=== PATIENT | female | born 1975 | race Hispanic/Latino ===

== ENCOUNTER 2022-07-27 18:38 | Emergency (ER) | payer OTHER ==
--- OUTSIDE RECORDS SUMMARY | 2022-07-27 18:40 | XMS REPORT | Continuity of Care Document ---
:1975 Author Organization [facility] t Address [address] [place] [address] Care Team Providers Name Role Phone PCP, PATIENT DOES NOT HAVE A Primary Care Physician Miguel Fontanez MD Attending Clinician MIGUEL MCGRATH Attending Clinician Unavailable Doctor Unassigned, [place] Attending Clinician Unavailable Payers Payer Name Policy Type Policy Number Effective Date Expiration Date S ource Problems Condition Condition Condition Status Onset Resolution Last Treating Co mments Source Name Details Category Date Date Treatment Clinician Date No known No known Disease Unive rs active active ity of problems problems [facility] Allergies, Adverse Reactions, Alerts Allergy Allergy Status Severity Reaction(s) Onset Inactive Treating Comm ents Source Name Type Date Date Clinician CODEINE DRUG Active Hallucinates 2021-07 Uni vers INGREDI 2-30 ity of 00:00: [place] [address] [place] [address] Codeine Propensi Active Hallucinatio 2021-07 U nivers ty to ns 2-30 ity of adverse 00:00: [place] reaction [address] [place] [address] s [place] NO KNOWN Drug Active Univers ALLERGIE Class ity of S [facility] Social History Social Habit Start Date Stop Date Quantity Comments Source Exposure to 2022-07-12 2022-07-22 Not sure [facility] SARS-CoV-2 00:00:00 15:00:00 [facility] (event) [place] Tobacco use and 2022-07-22 2022-07-22 Smokeless tobacco Un iversity of exposure 00:00:00 00:00:00 non-user [facility] Alcohol intake 2022-07-22 2022-07-22 Lifetime University of 00:00:00 00:00:00 non-drinker [facility] (finding) [place] Sex Ass[birth year] Universit y of 00:00:00 00:00:00 [facility] Smoking Status Start Date Stop Date Source Tobacco smoking consumption Univ [facility] Never smoked tobacco [facility] Medications Ordered Filled Start Stop Current Ordering Indication Dosage Frequency Signature Comments Components Source Medication Medication Date Date Medication? Clinician (SIG) Name Name No known 2021-07 No No known Unive rs medications 2-30 medication it y of 15:26: s [address] No known 2021-07 No No known Unive rs medications 2-30 medication it y of 15:26: s [address] Vital Signs Vital Name Observation Time Observation Value Comments Source Systolic blood 2022-07-22 21:25:00 123 mm[Hg] Univer sity of pressure [facility] Diastolic blood 2022-07-22 21:25:00 84 mm[Hg] Unive rsity of [facility] Heart rate 2022-07-22 21:23:00 65 /min [facility] Body temperature 2022-07-22 21:23:00 36.5 [facility] Respiratory rate 2022-07-22 21:23:00 18 /min [facility] Body height 2022-07-22 21:23:00 180.3 cm [facility] Body weight 2022-07-22 21:23:00 107.502 kg [facility] BMI 2022-07-22 21:23:00 33.05 kg/m2 [facility] Procedures Procedure Date / Time Performed Performing Clinician [facility] e ASSIGNMENT OF BENEFITS 2022-07-22 21:01:12 Doctor Unassigned, No [facility] Encounters Start End Encounter Admission Attending Care Care Encounter Source Date/Time Date/Time Type Type Clinicians Facility Department ID 2022-07-22 2022-07-22 [facility] [id number] Univers 15:00:00 16:02:17 Visit Miguel GUERIN [id number] Francine [id number] Ana MIGUEL [id number] [place] [address] [address] [employer] 2022-07-22 2022-07-22 Outpatient R ALCIDES [facility] [id number] Univers 15:00:00 16:02:17 MIGUEL ity of [facility] 2022-07-22 2022-07-22 Orders Doctor FRANKIE [id number] Univers 00:00:00 00:00:00 Only Unassigned, BRODY [id number] ity of [place] [facility] [id number] [facility] as [phone] [place] [address] [address] Results This patient has no known results.
[2022-07-27 19:21] LABS: Urine Blood 3+ (Negative); Urine Glucose Negative (Negative); Urine Protein 1+ (Negative); Urine Specific Gravity 1.015 (1.005-1.030)
[2022-07-27 19:30] LABS: Absolute Lymphocytes (CBC) 2.6 K/uL (0.7-4.9); Hematocrit 36.2 % (36.0-45.0); Lymphocytes % 26.8 % (15.3-44.8); MCV 88.9 fL (80-100); MPV 9.3 fL (7.6-11.3); RBC Red Blood Cell Count 4.08 M/uL (3.86-4.86)
[2022-07-27 19:56] LABS: Potassium 3.3 mmol/L (3.5-5.1)
--- NOTE | 2022-07-27 20:50 | RAD REPORT ---
EXAM DESCRIPTION: US - Transvaginal Study Probe - 07/27/2022 8:30 pm CLINICAL HISTORY: Vaginal bleeding COMPARISON: none FINDINGS: The uterus measures 9 x 5 x 6 cm. A fibroid is not seen. The endometrial stripe measures 2 centimeters. Nabothian cysts within the cervix Right ovary normal in size and echotexture. A 4.3 centimeter left ovarian cyst. Blood flow is present the left ovary. The right and left adnexa unremarkable No significant free fluid is seen. IMPRESSION: Thickened endometrium. This can be seen with hyperplasia, neoplasm or polyp. 4.3 centimeter left ovarian cyst Followup ultrasound in a couple months would be helpful to reassess the endometrium and ovarian cyst
--- NOTE | 2022-07-27 21:23 | ER ---
Nurse's Notes [facility] Name: Tamy Moreno Age: 46 yrs Sex: Female : 1975 Arrival Date: 07/27/2022 Time: 18:38 Bed 9 Private MD: Diagnosis: Abnormal uterine and vaginal bleeding, unspecified Presentation: 07/27 18:44 Chief complaint: Patient states: vaginal bleeding that began Monday, pt described aa5 bleeding as "heavy". 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 Coronavirus screen: At this time, the client does not indicate any symptoms associated with coronavirus-19. Ebola Screen: Patient denies travel to an Ebola-affected area in the 21 days before illness onset. Initial Sepsis Screen: Does the patient meet any 2 criteria? No. Patient's initial sepsis screen is negative. Does the patient have a suspected source of infection? No. Patient's initial sepsis screen is negative. Risk Assessment: Do you want to hurt yourself or someone else? Patient reports no desire to harm self or others. Onset of symptoms was July 2022. 18:44 Method Of Arrival: Wheelchair aa5 18:44 Acuity: MARYANNE 3 aa5 Historical: - Allergies: 18:46 Codeine; aa5 - Home Meds: 18:46 None [Active]; aa5 - PMHx: 18:46 None; aa5 - PSHx: 18:46 hernia; aa5 - Immunization history:: Adult Immunizations unknown. - Social history:: Smoking status: Patient denies any tobacco usage or history of. Screenin:33 [facility] ED Fall Risk Assessment (Adult) History of falling in the last 3 months, kd3 including since admission No falls in past 3 months (0 pts) Confusion or Disorientation No (0 pts) Intoxicated or Sedated No (0 pts) Impaired Gait No (0 pts) Mobility Assist Device Used No (0 pt) Altered Elimination No (0 pt) Score/Fall Risk Level 0 - 2 = Low Risk Oriented to surroundings. Abuse screen: Denies threats or abuse. Denies injuries from another. Nutritional screening: No deficits noted. Tuberculosis screening: No symptoms or risk factors identified. Assessment: 20:33 General: Appears in no apparent distress. Behavior is calm, cooperative. Pain: kd3 Complains of pain in abdomen. Neuro: Level of Consciousness is awake, alert, obeys commands, Oriented to person, place, time, situation. Cardiovascular: Patient's skin is warm and dry. Respiratory: Airway is patent Trachea midline Respiratory effort is even, unlabored, Respiratory pattern is regular, symmetrical. : bloody, Reports vaginal bleeding that is bright red. Vital Signs: 18:44 BP 139 / 80; Pulse 82; Resp 18 S; Temp 98.2(TE); Pulse Ox 99% on R/A; Weight 104.33 kg aa5 (R); Height 5 ft. 11 in. (180.34 cm) (R); 21:00 BP 133 / 82; Pulse 83; Resp 18; Pulse Ox 100% on R/A; Pain 1/10; oe 18:44 Body Mass Index 32.08 (104.33 kg, 180.34 cm) aa5 ED Course: 18:38 Patient arrived in ED. mr 18:42 Arm band placed on. aa5 18:46 Triage completed. aa5 18:56 Filomena Gillespie FNP-C is [facility]. kb 18:56 Xena Philip MD is Attending Physician. kb 19:24 Lorena Gallo, FERMÍN is Primary Nurse. kd3 20:31 US Transvaginal Study (Probe) In Process Unspecified. EDMS 20:34 Patient has correct armband on for positive identification. Placed in gown. kd3 21:35 No provider procedures requiring assistance completed. IV discontinued, intact, kd3 bleeding controlled, No redness/swelling at site. Pressure dressing applied. Administered Medications: 21:34 Drug: Potassium Chloride 20 mEq Route: PO; kd3 21:35 Follow up: Response: No adverse reaction kd3 Medication: 20:34 VIS not applicable for this client. kd3 Outcome: 21:22 Discharge ordered by . kb 21:35 Discharged to home ambulatory. kd3 21:35 Condition: stable 21:35 Discharge instructions given to patient, Instructed on discharge instructions, follow up and referral plans. Demonstrated understanding of instructions, follow-up care. 21:36 Patient left the ED. kd3 Signatures: Dispatcher [employer] EDMS Filomena Gillespie FNP-C FNP-Chava Huyen LambertJennifer RN RN aa5 Isael Don oe oLrena Gallo, RN RN kd3
--- NOTE | 2022-07-27 21:23 | EDPHYS ---
Physician Documentation [facility] Name: Tamy Moreno Age: 46 yrs Sex: Female : 1975 Arrival Date: 07/27/2022 Time: 18:38 Bed 9 Private MD: ED Physician Xena Philip HPI: 07/27 23:55 This 46 yrs old Female presents to ER via Wheelchair with complaints of kb Vaginal Bleeding, Weakness. 23:55 The patient presents with vaginal bleeding that is. Onset: The symptoms/episode kb began/occurred 4 day(s) ago. Modifying factors: The symptoms are alleviated by nothing, the symptoms are aggravated by nothing. The patient has been recently seen by a physician: the patient's primary care provider. 23:56 Associated signs and symptoms: Pertinent positives: vaginal bleeding. Severity of kb symptoms: At their worst the symptoms were moderate, in the emergency department the symptoms are unchanged. The patient has not experienced similar symptoms in the past. Pt reports she was seen by COMMERCIAL LOAN PROCESSOR on Monday for the first time in 5-6 years. Had pelvic exam and PAP smear done. Started having heavy vaginal bleeding on Monday. States the bleeding started slowing down, but today she felt like she was going to pass out. Historical: - Allergies: 18:46 Codeine; aa5 - Home Meds: 18:46 None [Active]; aa5 - PMHx: 18:46 None; aa5 - PSHx: 18:46 hernia; aa5 - Immunization history:: Adult Immunizations unknown. - Social history:: Smoking status: Patient denies any tobacco usage or history of. ROS: 23:54 Positive for vaginal bleeding. kb 23:54 Constitutional: Negative for fever, chills, and weight loss. 23:54 Neuro: Positive for near syncope. 23:54 All other systems are negative. Exam: 23:54 Constitutional: This is a well developed, well nourished patient who is awake, alert, kb and in no acute distress. Head/Face: Normocephalic, atraumatic. ENT: Moist Mucous membranes Cardiovascular: Regular rate and rhythm with a normal S1 and S2. No gallops, murmurs, or rubs. No pulse deficits. Respiratory: Respirations even and unlabored. No increased work of breathing. Talking in full sentences Abdomen/GI: Soft, non-tender. No distention Skin: Warm, dry with normal turgor. Normal color. MS/ Extremity: Pulses equal, no cyanosis. Neurovascular intact. Full, normal range of motion. Neuro: Awake and alert, GCS 15, oriented to person, place, time, and situation. Moves all extremities. Normal gait. Vital Signs: 18:44 BP 139 / 80; Pulse 82; Resp 18 S; Temp 98.2(TE); Pulse Ox 99% on R/A; Weight 104.33 kg aa5 (R); Height 5 ft. 11 in. (180.34 cm) (R); 21:00 BP 133 / 82; Pulse 83; Resp 18; Pulse Ox 100% on R/A; Pain 1/10; oe 18:44 Body Mass Index 32.08 (104.33 kg, 180.34 cm) aa5 MDM: 18:56 Patient medically screened. kb 23:53 Differential diagnosis: dysmenorrhea, menometrorrhagia, uterine fibroids. Data kb reviewed: vital signs, nurses notes. Data interpreted: Pulse oximetry: on room air is 100 %. Interpretation: normal. Counseling: I had a detailed discussion with the patient and/or guardian regarding: the historical points, exam findings, and any diagnostic results supporting the discharge/admit diagnosis, lab results, radiology results, the need for outpatient follow up, an OB/Gyne specialist, to return to the emergency department if symptoms worsen or persist or if there are any questions or concerns that arise at home. ED course: Pt has follow up appt with PCP and has a referral to COMMERCIAL LOAN PROCESSOR from PCP already. Educated on need to follow up with COMMERCIAL LOAN PROCESSOR for further workup and possible endometrial biopsy. Verbal understanding of all instructions recieved. 07/27 18:48 Order name: Abo/rh Typing; Complete Time: 20:31 aa5 07/27 18:48 Order name: Basic Metabolic Panel; Complete Time: 20:31 aa5 07/27 18:48 Order name: CBC with Diff; Complete Time: 19:43 aa5 07/27 19:10 Order name: TSH; Complete Time: 20:31 kb 07/27 19:21 Order name: Urine Dipstick-Ancillary; Complete Time: 19:23 EDMS 07/27 20:45 Order name: ABO/RH no charge; Complete Time: 21:11 EDMS 07/27 18:48 Order name: IV Saline Lock; Complete Time: 19:09 07/27 18:48 Order name: Labs collected and sent; Complete Time: 19:09 07/27 18:48 Order name: NPO; Complete Time: 19:10 [facility] 07/27 18:48 Order name: Urine Dipstick-Ancillary (obtain specimen); Complete Time: 19:24 [facility] 07/27 19:10 Order name: US Transvaginal Study (Probe); Complete Time: 21:11 kb Administered Medications: 21:34 Drug: Potassium Chloride 20 mEq Route: PO; kd3 21:35 Follow up: Response: No adverse reaction kd3 Disposition Summary: 07/27/22 21:22 Discharge Ordered Location: Home kb Condition: Stable kb Diagnosis - Abnormal uterine and vaginal bleeding, unspecified kb Followup: kb - With: Emergency Department - When: As needed - Reason: Worsening of condition Followup: kb - With: Private Physician - When: 2 - 3 days - Reason: Recheck today's complaints, Continuance of care, Re-evaluation by your physician Discharge Instructions: - Discharge Summary Sheet kb - Abnormal Uterine Bleeding, [id number] kb Forms: - Medication Reconciliation Form kb - Thank You Letter kb - Antibiotic Education kb - Prescription Opioid Use kb Signatures: Dispatcher [employer] Filomena Millan FNP-C FNP-Jennifer Michaels, RN RN aa5 Lorena Gallo RN RN kd3
[2022-07-27] MEDS ORDERED: POTASSIUM CL SA 10 MEQ TAB PO ONE (21:29)
[2022-07-27 21:54] VITALS: TEMP 98.2
[2022-07-27 21:55] VITALS: BP 133/82; O2SAT 100
== END 2022-07-27 21:36 | disposition home or self-care (01) ==
LOC: ER 18:38
DX: N93.9 Abnormal uterine and vaginal bleeding, unspecified (principal); Z88.5 Allergy status to narcotic agent
CPT/HCPCS: 36415; 76830; 80048; 81003; 84443; 85025; 86900; 86901; 99283